=== PATIENT | female | born 1980 | race Caucasian/White ===

== ENCOUNTER 2016-11-19 10:42 | Emergency (ER) | payer BC ==
[~2016-11-19] VITALS: Ht 170.2 cm; Wt 67.2 kg
[~2016-11-19 10:42] MED LIST: BACT800T5 PO; FINA15GE2 TD; FIORIC PO; IBUP600 PO; LABE200 PO; NIFE1TAB85 PO; OXYC1SOL5 PO; PERI8.6T PO; SIME80 PO; VIST50CA PO
[2016-11-19 10:45] VITALS: BP 179/105; PULSE 60; RESP 20; TEMP 97.6; O2SAT 99
--- NOTE | 2016-11-19 11:27 | PD ---
HPI Chief Complaint: Hypertension Time Seen by Provider: 11:26 Travel History International Travel<30 days: No Contact w/Intl Traveler<30days: No Traveled to known affect area: No History of Present Illness HPI 36-year-old female with history of preeclampsia with TWIN delivery in May 2016, presents to the emergency department for evaluation of hypertension. Patient states she was taken off of her blood pressure medication at the end of August. She states she's been doing very well. Over the last couple of days she has noticed intermittent fatigue with headache. She had some hand tingling earlier this week and then feet tingling that began yesterday. This caused become concerned. She contacted Dr. 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 Patient states she's had some chest pressure associated with the changes of her blood pressure but no definite pain. No shortness of breath. No recent illnesses, fever, chills. She has no focal deficits or weakness. Patient states she has not had intercourse since the delivery in May. There was one attempt but this was interrupted by the twins. There is no prophylaxis utilize during this attempt. No other symptoms to report. PFSH Past Medical History Cardiovascular Problems: Yes Diminished Hearing: No Gastrointestinal Disorders: Yes (ibs) GERD: Yes ?: Not : 2 Para: 3 Past Surgical History Section: Yes Other Surgery: Yes (pelvic floor disorder procedure) Social History Alcohol Use: No Tobacco Use: No Substance Use: No Allergies-Medications (Allergen,Severity, Reaction): Coded Allergies: Banana (Verified Allergy, Mild, 11/19/16) Cipro (Verified Allergy, Mild, 11/19/16) Keflex (Verified Allergy, Mild, 11/19/16) Latex (Verified Allergy, Mild, 11/19/16) Macrobid (Verified Allergy, Mild, 11/19/16) Mcnabb (Verified Allergy, Mild, 11/19/16) Reported Meds & Prescriptions Reported Meds & Active Scripts Active Bactrim DS (Sulfamethoxazole-Trimethoprim DS) 1 Tab Tab 1 Tab PO BID Fioricet Tab (Acetaminophen/Butalbital/Caffeine) 1 Tab 1 Tab PO Q6H PRN Nifedipine Er (Nifedipine) 30 Mg Tab 30 Mg PO DAILY Vistaril 50 MG CAP (Hydroxyzine Pamoate) 50 Mg Cap 50 Mg PO Q6H PRN Trandate 200 mg Tab (Labetalol HCl) 200 Mg Tab 200 Mg PO Q12HR Simethicone 80 Mg Chew 80 Mg PO QID PRN Liliya-Colace 8.6-50 mg (Sennosides-Docusate Sodium) 1 Tab Tab 2 Tab PO Q12H PRN Oxycodone/Acetaminophen 5 mg/325 mg 5 mg/325 mg Tab 2 Tab PO Q4H PRN Motrin 600 Mg Tab (Ibuprofen) 600 Mg Tab 600 Mg PO Q6H PRN Reported Finacea (Azelaic Acid) 15 % Gel 1 Applic TD Review of Systems Except as stated in HPI: all other systems reviewed are Neg Physical Exam Narrative GENERAL: Well-nourished female patient, ambulatory and in no acute distress SKIN: Warm and dry. HEAD: Atraumatic. Normocephalic. EYES: Pupils equal and round. No scleral icterus. No injection or drainage. ENT: No nasal bleeding or discharge. Mucous membranes pink and moist. NECK: Trachea midline. No JVD. CARDIOVASCULAR: Regular rate and rhythm. No murmur appreciated. RESPIRATORY: No accessory muscle use. Clear to auscultation. Breath sounds equal bilaterally. GASTROINTESTINAL: Abdomen soft, non-tender, nondistended. Hepatic and splenic margins not palpable. MUSCULOSKELETAL: No obvious deformities. No clubbing. No cyanosis. No edema. NEUROLOGICAL: Awake and alert. No obvious cranial nerve deficits. Motor grossly within normal limits. Normal speech. PSYCHIATRIC: Appropriate mood and affect; insight and judgment normal. Data Data Last Documented VS Vital Signs Date Time Temp Pulse Resp B/P Pulse Ox O2 Delivery O2 Flow Rate FiO2 11/19/16 13:51 Room Air 11/19/16 13:45 97.8 59 18 154/108 11/19/16 10:45 99 Orders Electrocardiogram (11/19/16 11:18) Complete Blood Count With Diff (11/19/16 11:18) Comprehensive Metabolic Panel (11/19/16 11:18) Magnesium (Mg) (11/19/16 11:18) Prothrombin Time / Inr (Pt) (11/19/16 11:18) Act Partial Throm Time (Ptt) (11/19/16 11:18) Urinalysis - C+S If Indicated (11/19/16 11:18) Ed Urine Pregnancytest Poc (11/19/16 11:18) Troponin I (11/19/16 11:27) Ckmb (Isoenzyme) Profile (11/19/16 11:27) Chest, Single Ap (11/19/16 ) Nifedipine Sr (Procardia Xl) (11/19/16 14:30) Labs Laboratory Tests Test 11/19/16 11/19/16 11:25 11:35 White Blood Count 7.5 TH/MM3 Red Blood Count 4.22 MIL/MM3 Hemoglobin 12.3 GM/DL Hematocrit 35.9 % Mean Corpuscular Volume 85.0 FL Mean Corpuscular Hemoglobin 29.1 PG Mean Corpuscular Hemoglobin 34.2 % Concent Red Cell Distribution Width 14.1 % Platelet Count 191 TH/MM3 Mean Platelet Volume 7.4 FL Neutrophils (%) (Auto) 48.0 % Lymphocytes (%) (Auto) 26.3 % Monocytes (%) (Auto) 5.0 % Eosinophils (%) (Auto) 20.4 % Basophils (%) (Auto) 0.3 % Neutrophils # (Auto) 3.6 TH/MM3 Lymphocytes # (Auto) 2.0 TH/MM3 Monocytes # (Auto) 0.4 TH/MM3 Eosinophils # (Auto) 1.5 TH/MM3 Basophils # (Auto) 0.0 TH/MM3 CBC Comment DIFF FINAL Differential Comment Prothrombin Time 11.4 SEC Prothromb Time International 1.0 RATIO Ratio Activated Partial 26.9 SEC Thromboplast Time Sodium Level 144 MEQ/L Potassium Level 3.7 MEQ/L Chloride Level 110 MEQ/L Carbon Dioxide Level 25.7 MEQ/L Anion Gap 8 MEQ/L Blood Urea Nitrogen 15 MG/DL Creatinine 0.68 MG/DL Estimat Glomerular Filtration 98 ML/MIN Rate Random Glucose 79 MG/DL Calcium Level 8.5 MG/DL Magnesium Level 1.5 MG/DL Total Bilirubin 0.4 MG/DL Aspartate Amino Transf 35 U/L (AST/SGOT) Alanine Aminotransferase 67 U/L (ALT/SGPT) Alkaline Phosphatase 104 U/L Total Creatine Kinase 100 U/L Troponin I LESS THAN 0.02 NG/ML Total Protein 6.2 GM/DL Albumin 3.5 GM/DL Urine Color LIGHT-YELLOW Urine Turbidity CLEAR Urine pH 6.5 Urine Specific [place] 1.015 Urine Protein NEG mg/dL Urine Glucose (UA) NEG mg/dL Urine Ketones NEG mg/dL Urine Occult Blood NEG Urine Nitrite NEG Urine Bilirubin NEG Urine Urobilinogen LESS THAN 2.0 MG/DL Urine Leukocyte Esterase NEG Urine WBC 1 /hpf Urine Squamous Epithelial 1 /hpf Cells Microscopic Urinalysis Comment CULT NOT INDICATED MDM Medical Decision Making Medical Screen Exam Complete: Yes Emergency Medical Condition: Yes Medical Record Reviewed: Yes Differential Diagnosis Hypertension versus hypertension urgency versus crisis versus preeclampsia, Narrative Course Workup is initiated in triage. Once a medical bed becomes available, patient will be transferred and care assumed by that provider. Heather Yi Nov 19, 2016 11:27
[2016-11-19 11:49] LABS: AUTOMATED NEUTROPHIL # 3.6 TH/MM3 (1.8-7.7); BASOPHIL % 0.3 % (0.0-2.0); EOSINOPHIL # 1.5 TH/MM3 (0-0.4); EOSINOPHIL % 20.4 % (0.0-4.0); HEMATOCRIT 35.9 % (35.0-46.0); HEMO FLAGS DIFF FINAL; LYMPH % 26.3 % (9.0-44.0); MEAN CORPUSCULAR HEMOGLOBIN 29.1 PG (27.0-34.0); MEAN CORPUSCULAR HGB CONC 34.2 % (32.0-36.0); PLATELET COUNT 191 TH/MM3 (150-450); RED BLOOD COUNT 4.22 MIL/MM3 (4.00-5.30); RED CELL DISTRIBUTION WIDTH 14.1 % (11.6-17.2); WHITE BLOOD COUNT 7.5 TH/MM3 (4.0-11.0)
[2016-11-19 12:13] LABS: ALT (GPT) 67 U/L (10-53); ANION GAP 8 MEQ/L (5-15); AST (GOT) 35 U/L (15-37); BICARBONATE 25.7 MEQ/L (21.0-32.0); BLOOD UREA NITROGEN 15 MG/DL (7-18); CHLORIDE 110 MEQ/L (98-107); GLOMERULAR FILTRATION RATE 98 ML/MIN (>89); MAGNESIUM 1.5 MG/DL (1.5-2.5); POTASSIUM 3.7 MEQ/L (3.5-5.1); SODIUM (NA) 144 MEQ/L (136-145)
[2016-11-19 12:15] LABS: ALKALINE PHOSPHATASE 104 U/L (45-117); TOTAL BILIRUBIN ADULT 0.4 MG/DL (0.2-1.0)
[2016-11-19 12:16] LABS: CREATINE KINASE 100 U/L (26-192)
[2016-11-19 12:19] LABS: BLOOD, URINE NEG (NEG); COMMENT (UR) CULT NOT INDICATED; CULTURE IF INDICATED CULT NOT INDICATED; GLUCOSE,URINE NEG (NEG); KETONE, URINE NEG (NEG); NITRITE,URINE NEG (NEG); PH, URINE 6.5 (5.0-8.5); SQUAMOUS EPITHELIAL CELL URINE 1 /hpf (0-5); URINE COLOR LIGHT-YELLOW (YELLW/STRAW)
[2016-11-19 12:20] LABS: APTT (PATIENT) 26.9 SEC (24.3-30.1); PROTHROMBIN TIME - PATIENT 11.4 SEC (9.8-11.6)
[2016-11-19 13:45] VITALS: BP 154/108; PULSE 59; RESP 18; TEMP 97.8
[2016-11-19] MEDS ORDERED: NIFEdipine 30 MG SUSTAINED RELEASE TAB PO ONE (14:30)
--- NOTE | 2016-11-19 14:30 | PD ---
Physical Exam Narrative I, Dr. Watson, have reviewed the advance practice practitioner's documentation and am in agreement, met with the patient face to face, made the diagnosis, and the medical decision making was done by me. *My assessment and Findings: Anxiety vs. cardiomyopathy vs. kidney failure vs. venous stasis 36yo F with PMH of preeclampsia, 5 months post presents to the ED with multiple complaints. She is mainly complaining of swelling in bilateral legs since last Tuesday. It is associated with midsternal chest pain, sob, headache that has resolved but feels like it is about to start again. Pt had US of both legs and breast 2 days ago and there was no DVT. Pt had ultrasound because she is breast feeding and had clogged ducts. Pt states she has been off her labetalol and procardia since August. She checked her BP at home and it has been high. Denies any visual changes, current focal numbness or weakness. Labs reviewed, no leukocytosis. Troponin negative. Albumin normal at 3.5. Creatinine normal at 0.68. UA negative. CXR negative. Pt is still breast feeding, given procardia 30mg XL PO. Will give acetaminophen for pain. Pt reevaluated at bedside and feels better. Denies any more headache, chest pain or sob. Pt states she has been very stress at home with the twins and has not had much sleep. Repeat BP 151/92. Do not see any end organ damage. Pt has procardia 30mg XL and advised pt to take it daiy and follow up with her PMD this week. Data Data Last Documented VS Vital Signs Date Time Temp Pulse Resp B/P Pulse Ox O2 Delivery O2 Flow Rate FiO2 11/19/16 15:18 63 19 151/92 11/19/16 13:51 Room Air 11/19/16 13:45 97.8 11/19/16 10:45 99 Orders Electrocardiogram (11/19/16 11:18) Complete Blood Count With Diff (11/19/16 11:18) Comprehensive Metabolic Panel (11/19/16 11:18) Magnesium (Mg) (11/19/16 11:18) Prothrombin Time / Inr (Pt) (11/19/16 11:18) Act Partial Throm Time (Ptt) (11/19/16 11:18) Urinalysis - C+S If Indicated (11/19/16 11:18) Ed Urine Pregnancytest Poc (11/19/16 11:18) Troponin I (11/19/16 11:27) Ckmb (Isoenzyme) Profile (11/19/16 11:27) Chest, Single Ap (11/19/16 ) Nifedipine Sr (Procardia Xl) (11/19/16 14:30) Acetaminophen (Tylenol) (11/19/16 15:15) Labs Laboratory Tests Test 11/19/16 11/19/16 11:25 11:35 White Blood Count 7.5 TH/MM3 Red Blood Count 4.22 MIL/MM3 Hemoglobin 12.3 GM/DL Hematocrit 35.9 % Mean Corpuscular Volume 85.0 FL Mean Corpuscular Hemoglobin 29.1 PG Mean Corpuscular Hemoglobin 34.2 % Concent Red Cell Distribution Width 14.1 % Platelet Count 191 TH/MM3 Mean Platelet Volume 7.4 FL Neutrophils (%) (Auto) 48.0 % Lymphocytes (%) (Auto) 26.3 % Monocytes (%) (Auto) 5.0 % Eosinophils (%) (Auto) 20.4 % Basophils (%) (Auto) 0.3 % Neutrophils # (Auto) 3.6 TH/MM3 Lymphocytes # (Auto) 2.0 TH/MM3 Monocytes # (Auto) 0.4 TH/MM3 Eosinophils # (Auto) 1.5 TH/MM3 Basophils # (Auto) 0.0 TH/MM3 CBC Comment DIFF FINAL Differential Comment Prothrombin Time 11.4 SEC Prothromb Time International 1.0 RATIO Ratio Activated Partial 26.9 SEC Thromboplast Time Sodium Level 144 MEQ/L Potassium Level 3.7 MEQ/L Chloride Level 110 MEQ/L Carbon Dioxide Level 25.7 MEQ/L Anion Gap 8 MEQ/L Blood Urea Nitrogen 15 MG/DL Creatinine 0.68 MG/DL Estimat Glomerular Filtration 98 ML/MIN Rate Random Glucose 79 MG/DL Calcium Level 8.5 MG/DL Magnesium Level 1.5 MG/DL Total Bilirubin 0.4 MG/DL Aspartate Amino Transf 35 U/L (AST/SGOT) Alanine Aminotransferase 67 U/L (ALT/SGPT) Alkaline Phosphatase 104 U/L Total Creatine Kinase 100 U/L Troponin I LESS THAN 0.02 NG/ML Total Protein 6.2 GM/DL Albumin 3.5 GM/DL Urine Color LIGHT-YELLOW Urine Turbidity CLEAR Urine pH 6.5 Urine Specific [place] 1.015 Urine Protein NEG mg/dL Urine Glucose (UA) NEG mg/dL Urine Ketones NEG mg/dL Urine Occult Blood NEG Urine Nitrite NEG Urine Bilirubin NEG Urine Urobilinogen LESS THAN 2.0 MG/DL Urine Leukocyte Esterase NEG Urine WBC 1 /hpf Urine Squamous Epithelial 1 /hpf Cells Microscopic Urinalysis Comment CULT NOT INDICATED MDM Supervised Visit with LORIE: Yes Interpretation(s) EKG: Sinus bradycardia at 52bpm. Normal axis. No ST segment elevation or depression. TWI III. Diagnosis Primary Impression: HTN (hypertension) Qualified Code: I10 - Essential hypertension Patient Instructions: General Instructions Departure Forms: Tests/Procedures Additional Instruction: Please continue to take your procardia daily and follow up with your PMD as soon as you can. Please return to the ED if symptoms worsen. Med/Other Pt SpecificInfo: Prescription(s) given, No Change to Meds Disposition: 01 DISCHARGE HOME Condition: Stable Lora Watson Nov 19, 2016 14:30
--- NOTE | 2016-11-19 14:39 | RADRPT ---
EXAM DATE/TIME: 11/19/2016 14:18 [facility] COMPARISON: CHEST SINGLE AP, June 13, 2016, 1:56. INDICATIONS : High blood pressure. MEDICAL HISTORY : None. SURGICAL HISTORY : None. ENCOUNTER: Initial ACUITY: 1 day PAIN SCORE: 0/10 LOCATION: Bilateral chest FINDINGS: A single view of the chest demonstrates the lungs to be symmetrically aerated without evidence of mas s, infiltrate or effusion. The cardiomediastinal contours are unremarkable. Osseous structures are intact. CONCLUSION: 1. No acute cardiopulmonary disease. Kar Boyd MD on November 19, 2016 at 14:37 Board Certified Radiologist. This report was verified electronically.
[2016-11-19] MEDS ORDERED: ACETAMINOPHEN 325 MG TAB PO ONE (15:15)
[2016-11-19 15:18] VITALS: BP 151/92; PULSE 63; RESP 19
--- NOTE | 2016-11-20 19:15 | EKG ---
Date Performed: 11/19/2016 Time Performed: 11:39:06 PTAGE: 36 years EKG: SINUS BRADYCARDIA LOW QRS VOLTAGE IN PRECORDIAL LEADS POSSIBLE RIGHT VENTRICULAR CONDUCTION DELAY Since previous tracing, no significant change noted BORDERLINE ECG PREVIOUS TRACING : 06/30/2016 19.21 DOCTOR: Clive Stephenson Interpretating Date/Time 11/20/2016 19:15:22
== END 2016-11-19 16:21 | disposition home or self-care (01) ==
LOC: NEPC 10:42
DX: K58.9 Irritable bowel syndrome, unspecified (principal); I10 Essential (primary) hypertension; R00.1 Bradycardia, unspecified
CPT/HCPCS: 71010; 80053; 81001; 82550; 83735; 84484; 84703; 85025; 85610; 85730; 93005